=== PATIENT | female | born 1950 | race Two or more races ===

== ENCOUNTER 2016-08-09 14:08 | Inpatient (IN) | payer OTHER, MEDICAID ==
[~2016-08-09] VITALS: Ht 147.3 cm; Wt 47.1 kg
[~2016-08-09 14:08] MED LIST: ADAL40KI2; ALBUAER3 IN; CITA-77 PO; DOC100C PO; FERR324T11; FLU05NSL; FOLI1TAB6 PO; GABA100C PO; HYDR-2595 PO; LISI-275 PO; LUBI24CA6 PO; METF-316; METH2.5T3 PO; METO-169 PO; PANT40TA2 PO; PRA25T OR; SUC1LQ PO; TRAZ50TA2 PO
[2016-08-09] MEDS ORDERED: MORPHINE SULF INJ 2 MG/ML SYRINGE 1ML IV ONE (20:00)
[2016-08-09] MEDS ORDERED: FLEET ENEMA(ADULT) 135 ML PR ONE (20:00)
[2016-08-09] MEDS ORDERED: SODIUM CHLORIDE 0.9% 1,000 ML IV ONE (20:00)
[2016-08-09] MEDS ORDERED: ONDANSETRON HCL 4 MG/2 ML VIAL IV ONE (20:00)
[2016-08-09 21:19] LABS: Basophils # (auto) 0.1 uL; Basophils % (auto) 1.1 % (0.0-2.0); Eosinophils # (auto) 0.2 uL; Eosinophils % (auto) 2.2 % (0.0-7.0); Hematocrit 30.5 % (36.0-46.0); Hemoglobin 9.9 g/dL (12.2-16.2); Lymphocytes # (auto) 2.2 uL; Lymphocytes % (auto) 26.4 % (10.0-50.0); Mean Corpuscular Hemoglobin 31.8 pg (28.0-32.0); Mean Corpuscular Hgb Conc. 32.3 g/dL (32.0-36.0); Mean Corpuscular Volume 98.2 fL (80.0-100.0); Mean Platelet Volume 8.4 fL (7.4-10.4); Monocytes # (auto) 0.8 uL; Monocytes % (auto) 9.5 % (0.0-12.0); Neutrophils # (auto) 5.1 uL; Neutrophils % (auto) 60.8 % (37.0-80.0); Platelet Count (auto) 409 10^3/uL (140-450); Red Cell Distribution Width 16.3 % (11.6-16.0); White Blood Cell 8.3 10^3/uL (4.4-10.8)
[2016-08-09 21:26] LABS: Albumin 2.6 g/dL (3.4-5.0); BUN/Creatinine Ratio 13.6; Calcium 8.2 mg/dL (8.5-10.1)
[2016-08-09 21:28] LABS: Bilirubin, Total 0.2 mg/dL (0.2-1.0); Total Protein 6.9 g/dL (6.4-8.2)
[2016-08-09] MEDS ORDERED: ONDANSETRON HCL 4 MG/2 ML VIAL IV PRN (23:15)
[2016-08-09] MEDS ORDERED: TEMAZEPAM 15 MG CAP PO PRN (23:15)
[2016-08-09] MEDS ORDERED: ALBUTEROL SULF 2.5 MG/0.5ML(0.5%) NEB SOLN NEB PRN (23:15)
[2016-08-09] MEDS ORDERED: HYDROcodone-ACET 5/325MG TAB PO PRN (23:15)
[2016-08-09] MEDS ORDERED: ACETAMINOPHEN 325 MG TAB PO PRN (23:15)
[2016-08-09] MEDS ORDERED: DEXTROSE (50%) 50ML SYRG IV PRN (23:15)
[2016-08-10] VITALS (8 sets, daily range): BP systolic 132–162; BP diastolic 56–79
[2016-08-10] MEDS ORDERED: FLEET ENEMA(ADULT) 135 ML PR ONE (04:00)
[2016-08-10] MEDS: InsuLIN REG 1unit/0.01ml Soln (100units/ml) SC SCH ×5 (05:24→21:56)
[2016-08-10] MEDS: MORPHINE SULF INJ 2 MG/ML SYRINGE 1ML IV PRN ×4 (05:24→18:51)
[2016-08-10] MEDS: ACCU-CHEK COMFORT CURVE STRIP VI SCH ×5 (05:24→21:28)
[2016-08-10] MEDS: GABAPENTIN 100 MG CAP PO SCH ×3 (05:24→21:27)
[2016-08-10 06:31] LABS: Basophils # (auto) 0 uL; Basophils % (auto) 0.5 % (0.0-2.0); Eosinophils # (auto) 0.2 uL; Eosinophils % (auto) 1.5 % (0.0-7.0); Hematocrit 29.7 % (36.0-46.0); Hemoglobin 9.7 g/dL (12.2-16.2); Lymphocytes # (auto) 2.4 uL; Lymphocytes % (auto) 23.6 % (10.0-50.0); Mean Corpuscular Hgb Conc. 32.8 g/dL (32.0-36.0); Mean Corpuscular Volume 97.5 fL (80.0-100.0); Mean Platelet Volume 8.1 fL (7.4-10.4); Monocytes # (auto) 0.6 uL; Monocytes % (auto) 6.2 % (0.0-12.0); Neutrophils % (auto) 68.2 % (37.0-80.0); Platelet Count (auto) 386 10^3/uL (140-450); White Blood Cell 10.2 10^3/uL (4.4-10.8)
[2016-08-10 06:41] LABS: Albumin 2.6 g/dL (3.4-5.0); BUN/Creatinine Ratio 14.3; Potassium 4.6 mmol/L (3.5-5.1)
[2016-08-10 06:44] LABS: Bilirubin, Total 0.3 mg/dL (0.2-1.0); Total Protein 6.7 g/dL (6.4-8.2)
[2016-08-10] MEDS ORDERED: FAMOTIDINE 20 MG TAB PO SCH (10:00)
[2016-08-10] MEDS: DOCUSATE SOD 100 MG CAP PO SCH ×2 (10:13→21:27)
[2016-08-10] MEDS: CITALOPRAM HYDROBR 20 MG TAB PO SCH (10:13)
[2016-08-10] MEDS: PRAMIPEXOLE DIHYDROCHLORIDE MO 0.25 MG TAB PO SCH ×2 (10:14→21:27)
[2016-08-10] MEDS: FERROUS SULFATE 325 MG TAB PO SCH ×3 (10:14→17:58)
[2016-08-10] MEDS: LISINOPRIL 5 MG TAB PO SCH (10:15)
[2016-08-10] MEDS: METOPROLOL SUCCINATE XL 50 MG TAB PO SCH (10:15)
[2016-08-10] MEDS: ENOXAPARIN SOD 30 MG/0.3 ML SYRINGE SC SCH (10:16)
[2016-08-10] MEDS ORDERED: DEXTROSE (50%) 50ML SYRG IV PRN (15:00)
[2016-08-10] MEDS ORDERED: LACTULOSE 20Gm/30ML SOLN PO PRN (15:00)
[2016-08-10 16:50] LABS: Vitamin B12 > 2000 pg/mL (211-911)
[2016-08-10 16:53] LABS: Temperature: 23.3 C (20.0-25.0)
[2016-08-11 05:18] VITALS: BP 154/89
[2016-08-11] MEDS: GABAPENTIN 100 MG CAP PO SCH ×2 (05:35→14:11)
[2016-08-11] MEDS: ACCU-CHEK COMFORT CURVE STRIP VI SCH ×2 (05:36→12:20)
[2016-08-11] MEDS: MORPHINE SULF INJ 2 MG/ML SYRINGE 1ML IV PRN ×2 (05:36→10:08)
[2016-08-11] MEDS: InsuLIN REG 1unit/0.01ml Soln (100units/ml) SC SCH ×2 (05:36→11:30)
[2016-08-11 06:46] LABS: Hematocrit 31.5 % (36.0-46.0); Hemoglobin 10.4 g/dL (12.2-16.2)
[2016-08-11 07:22] LABS: Magnesium 2.2 mg/dL (1.6-2.6)
[2016-08-11] MEDS: FERROUS SULFATE 325 MG TAB PO SCH ×2 (08:48→12:23)
[2016-08-11 09:00] VITALS: BP 161/81
[2016-08-11] MEDS ORDERED: FAMOTIDINE 20 MG TAB PO SCH (10:00)
[2016-08-11] MEDS: DOCUSATE SOD 100 MG CAP PO SCH (10:04)
[2016-08-11] MEDS: METOPROLOL SUCCINATE XL 50 MG TAB PO SCH (10:05)
[2016-08-11] MEDS: CITALOPRAM HYDROBR 20 MG TAB PO SCH (10:05)
[2016-08-11] MEDS: LISINOPRIL 5 MG TAB PO SCH (10:06)
[2016-08-11] MEDS: PRAMIPEXOLE DIHYDROCHLORIDE MO 0.25 MG TAB PO SCH (10:07)
[2016-08-11] MEDS: ENOXAPARIN SOD 30 MG/0.3 ML SYRINGE SC SCH (10:10)
[2016-08-11] MEDS ORDERED: DOCU-94 PO (11:12)
[2016-08-11 13:00] VITALS: BP 150/84
== END 2016-08-11 17:35 | disposition home or self-care (01) | DRG 682 ==
LOC: ER 14:08 → EDBD 14:08 → EAST 14:09
PROVIDERS: ADMIT Nurse Practitioner; ATTEND Internal Medicine
DX: N17.0 Acute kidney failure with tubular necrosis (principal); E43 Unspecified severe protein-calorie malnutrition; K59.00 Constipation, unspecified; G89.4 Chronic pain syndrome; D63.8 Anemia in other chronic diseases classified elsewhere; D89.9 Disorder involving the immune mechanism, unspecified; E11.9 Type 2 diabetes mellitus without complications; F17.210 Nicotine dependence, cigarettes, uncomplicated; G25.81 Restless legs syndrome; I10 Essential (primary) hypertension; R10.31 Right lower quadrant pain; M06.9 Rheumatoid arthritis, unspecified; F41.9 Anxiety disorder, unspecified; F32.9 Major depressive disorder, single episode, unspecified; Z96.642 Presence of left artificial hip joint; J44.9 Chronic obstructive pulmonary disease, unspecified; J45.909 Unspecified asthma, uncomplicated; K21.9 Gastro-esophageal reflux disease without esophagitis; Z82.0 Family history of epilepsy and other diseases of the nervous system; Z82.49 Family history of ischemic heart disease and other diseases of the circulatory system; Z86.73 Personal history of transient ischemic attack (TIA), and cerebral infarction without residual deficits; Z87.11 Personal history of peptic ulcer disease; Z79.899 Other long term (current) drug therapy; Z90.710 Acquired absence of both cervix and uterus; Z98.51 Tubal ligation status; Z90.49 Acquired absence of other specified parts of digestive tract; Z68.21 Body mass index [BMI] 21.0-21.9, adult
CPT/HCPCS: 36415; 74000; 80053; 80061; 82150; 82607; 82746; 82962; 83036; 83540; 83550; 83690; 83735; 84443; 85014; 85018; 85025; 94640; 94761; 96361; 96374; J1815; J2405